=== PATIENT | female | born 1940 | race Caucasian/White ===

== ENCOUNTER → 2020-11-22 | Outpatient (CLI) | payer MEDICARE ==
[2020-11-22 18:19] LABS: HGB 12.3 g/dL (12.0-15.0); MCH 29.8 pg (27.0-32.0); MCHC 31.5 g/dL (32.0-37.0); MCV 94.4 fL (80.0-97.0); Mean Platelet Volume 10.5 fL (9.5-12.2); Platelet Count 224 X 10*3/uL (140-440); RBC 4.13 X 10*6/uL (4.10-5.20); RDW 15.1 % (11.5-14.5); WBC 21.74 X 10*3/uL (4.50-10.00)
[2020-11-22 21:16] LABS: African American GFR (CKD) 101.2 (60.0-200.0); Albumin 4.6 g/dL (3.80-4.90); Anion Gap 7.5 mmol/L (4.00-12.00); BUN/Creat Ratio 41.67 Ratio (12.00-20.00); Calcium 10.1 mg/dL (8.7-10.3); Carbon Dioxide 25.5 mmol/L (21.6-31.8); Chol/HDL Ratio 3.91; Globulin 2.3 g/dL (1.6-3.3); LDL Cholesterol,Calculated 56.8 mg/dL (0.0-131.0); Magnesium 2.2 mg/dL (1.5-2.4); Non-African American GFR(CKD) 87.3 (60.0-200.0); Potassium 4.5 mmol/L (3.5-5.5); Total Bilirubin 1.3 mg/dL (0.2-1.2); Total Protein 6.9 g/dL (6.2-8.2); VLDL Calculation 74.2 mg/dL (5.00-40.00)
== END | disposition home or self-care (01) ==
LOC: LABWHC1 11:07
PROVIDERS: ATTEND Nurse Practitioner Adult Health
DX: E78.5 Hyperlipidemia, unspecified (principal); I25.10 Atherosclerotic heart disease of native coronary artery without angina pectoris; I47.1 Supraventricular tachycardia
CPT/HCPCS: 36415; 80053; 80061; 83735; 84443; 84481; 85027

== ENCOUNTER → 2024-09-27 | Outpatient (CLI) | payer MEDICARE ==
[2024-09-27 15:11] LABS: INR 0.9 (<1.2); Partial Thromboplastin Time 23.3 sec (22.0-30.0); Prothrombin Time 10.5 sec (10.0-12.5)
[2024-09-27 18:09] LABS: HCT 39.5 % (37.2-46.3); HGB 12.4 g/dL (12.0-15.0); MCH 29.4 pg (27.0-32.0); MCHC 31.4 g/dL (32.0-37.0); MCV 93.6 FL (80.0-97.0); Mean Platelet Volume 10.7 FL (9.5-12.2); NRBC Per 100 WBC 0 X 10*3/uL (0.00-0.01); Platelet Count 235 X 10*3/uL (140-440); RBC 4.22 X 10*6/uL (4.10-5.20); RDW 14.3 % (11.5-14.5); WBC 15.27 X 10*3/uL (4.50-10.00)
[2024-09-27 18:21] LABS: ALT 9 U/L (8-44); AST 15 U/L (13-35); Albumin 4.1 g/dL (3.8-4.9); Albumin/Globulin Ratio 2.16 Ratio (1.60-3.17); Alkaline Phosphatase 83 U/L (41-126); Blood Urea Nitrogen 20.4 mg/dL (9.0-27.0); Calcium 9.1 mg/dL (8.7-10.3); Carbon Dioxide 24.5 mmol/L (21.6-31.8); Chloride 107 mmol/L (96-109); Globulin 1.9 g/dL (1.6-3.3); Glucose 102 mg/dL (70-110); Potassium 4.3 mmol/L (3.5-5.5); Sodium 144 mmol/L (135-145); Total Bilirubin 0.4 mg/dL (0.3-1.2)
== END | disposition home or self-care (01) ==
LOC: LABWHC1 13:48
PROVIDERS: ATTEND Orthopaedic Surgery Sports Medicine
DX: Z01.812 Encounter for preprocedural laboratory examination (principal); M17.12 Unilateral primary osteoarthritis, left knee; Z22.322 Carrier or suspected carrier of Methicillin resistant Staphylococcus aureus
CPT/HCPCS: 36415; 80053; 85027; 85610; 85730; 87070

== ENCOUNTER 2024-10-19 05:48 | Inpatient (IN) | payer MEDICARE ==
[~2024-10-19 05:48] MED LIST: ACETAMINOPHEN TAB 500 MG TAB PO PRN; ONDANSETRON 4 MG/2 ML VIAL IVP PRN; TRANEXAMIC 1,000 MG/100ML-NACL 1,000 MG in SALINE 1 100ML.BAG IVPB PRN
[2024-10-19] MEDS ORDERED: LIDOCAINE 1% (10MG/ML) FOR IV START INTRADERMA PRN (06:12)
[2024-10-19] MEDS: LACTATED RINGERS 1,000 ML IV SCH ×2 (06:50→12:03)
[2024-10-19] MEDS: IV FLUID CONTINUATION 1,000 ML IV ONE ×2 (06:50→07:29)
[2024-10-19] MEDS: GABAPENTIN 300 MG CAP PO PRN (06:53)
[2024-10-19] MEDS: MELOXICAM 7.5 MG TAB PO PRN (06:53)
[2024-10-19] MEDS: ONDANSETRON 4 MG/2 ML VIAL IVP ONE (06:55)
[2024-10-19] MEDS: DEXAMETHASONE SOD PHOSPHATE 4 MG/ML 1 ML VIAL IVP STA (06:56)
[2024-10-19] MEDS ORDERED: HYDROmorphone 0.5 MG/0.5 ML SYRINGE IVP PRN ×4 (07:00→07:23)
[2024-10-19] MEDS ORDERED: NALOXONE 0.4 MG/ML 1 ML VIAL IV PRN (07:23)
[2024-10-19] MEDS ORDERED: traMADol 50 MG TAB PO PRN (07:23)
[2024-10-19] MEDS ORDERED: NA PHOS,M-B/NA PHOS,DI-BA 133 ML ENEMA RECTAL PRN (07:23)
[2024-10-19] MEDS ORDERED: HYDROcodone/APAP 5-325MG 1 EACH TAB PO PRN (07:23)
[2024-10-19] MEDS: MIDAZOLAM 2 MG/2 ML VIAL IV ONE (07:24)
[2024-10-19] MEDS: fentaNYL (PF) 50 MCG/ML 2 ML AMP IVP PRN (07:25)
[2024-10-19] MEDS: ceFAZolin 1,000 MG in SODIUM CHLORIDE 0.9% 1,000 ML IRRIGATION ONE (07:30)
[2024-10-19] MEDS: ceFAZolin 2 GM in DEXTROSE 5% IN WATER 50 ML IVPB PRN (07:30)
[2024-10-19] MEDS ORDERED: TRANEXAMIC 1,000 MG/100ML-NACL PREMIX BAG ONE (07:59)
[2024-10-19] MEDS ORDERED: GLYCOPYRROLATE 0.2 MG/ML 2 ML VIAL ONE (07:59)
[2024-10-19] MEDS ORDERED: NEOSTIGMINE 1 MG/ML 10 ML VIAL ONE (07:59)
[2024-10-19] MEDS ORDERED: SUCCINYLCHOLINE CHLORIDE 200 MG/10 ML VIAL IV ONE (07:59)
[2024-10-19] MEDS ORDERED: fentaNYL (PF) 50 MCG/ML 2 ML AMP ONE (07:59)
[2024-10-19] MEDS ORDERED: ROPIVACAINE 5 MG/ML 30 ML VIAL ONE (07:59)
[2024-10-19] MEDS ORDERED: ROCURONIUM 10 MG/ML (5 ML VIAL) IV ONE (07:59)
[2024-10-19] MEDS ORDERED: SODIUM CHLORIDE 0.9% (PF) 10 ML VIAL ONE (07:59)
[2024-10-19] MEDS ORDERED: HYDROmorphone (PF) 1 MG/ML ONE (07:59)
[2024-10-19] MEDS ORDERED: PHENYLEPHRINE-0.9% NACL SYG 1,000 MCG/10 ML SYRINGE ONE (07:59)
[2024-10-19] MEDS ORDERED: LIDOCAINE 1% INJ 10MG/ML (20 ML MDV) ONE (07:59)
[2024-10-19] MEDS ORDERED: PROPOFOL 10 MG/ML 20 ML VIAL IV ONE (07:59)
[2024-10-19] MEDS ORDERED: DEXAMETHASONE SOD PHOSPHATE 4 MG/ML 1 ML VIAL ONE (07:59)
[2024-10-19] MEDS: LACTATED RINGERS 1,000 ML IV ONE (09:18)
--- NOTE | 2024-10-19 09:37 | P.ANPRN ---
Procedure Note - Anesthesia - Nerve Block Performed Left Adductor Canal Infusion Time Out Performed: Yes (0703) Date of Procedure: 10/19/24 Procedure Start Time: 07:04 Procedure Stop Time: 07:11 Location of Patient: PreOp Indication: Acute Post-Operative Pain, Requested by Surgeon Specifically requested for management of pain by DrKena: Ameya Jenkins Sedation Type: Sedate with meaningful contact maintained Preparation: Sterile Prep, Sterile Dressing Position: Supine Catheter: None Needle Types: Pajunk Needle Gauge: 18 Ultrasound used to visualize needle placement: Yes Ultrasound used to observe medication spread: Yes Injectate: 0.5% Ropivacaine (see comment for volume) (15cc+10cc nacl pf+decadron 4mg) Blood Aspirated: No Pain Paresthesia on Injection Noted: No Resistance on Injection: Normal Image Stored and Saved: Yes Events: Uneventful and Well Tolerated
--- NOTE | 2024-10-19 09:37 | P.ANPRN ---
Procedure Note - Anesthesia - Nerve Block Performed Left iPack Single Time Out Performed: Yes (0703) Date of Procedure: 10/19/24 Procedure Start Time: 07:12 Procedure Stop Time: 07:16 Location of Patient: PreOp Indication: Acute Post-Operative Pain, Requested by Surgeon Specifically requested for management of pain by DrKena: Ameya Jenkins Sedation Type: Sedate with meaningful contact maintained Preparation: Sterile Prep Position: Supine Catheter: None Needle Types: Pajunk Needle Gauge: 21 Ultrasound used to visualize needle placement: Yes Ultrasound used to observe medication spread: Yes Injectate: 0.5% Ropivacaine (see comment for volume) (15cc+10cc nacl pf+decadron 4mg) Blood Aspirated: No Pain Paresthesia on Injection Noted: No Resistance on Injection: Normal Image Stored and Saved: Yes Events: Uneventful and Well Tolerated
[2024-10-19] MEDS: ROPIVACAINE 1,100 MG, SODIUM CHLORIDE 0.9% 500 ML 330 ML, EMPTY PAIN BALL 1 EACH MISCELLANE PRN (10:18)
[2024-10-19] MEDS: hydrALAZINE HCL 20 MG/ML 1 ML VIAL IVP STA (10:39)
--- NOTE | 2024-10-19 10:58 | XR ---
EXAMINATION TYPE: XR knee limited LT DATE OF EXAM: 10/19/2024 10:52 AM INDICATION: Patient age:Female; 84 years old; Reason for study: Evaluation for Postop abnormality and alignment; PHH. pain COMPARISON: None. TECHNIQUE: The Left knee(s) was examined in frontal and lateral projections. FINDINGS: Status post total knee arthroplasty changes with hardware in appropriate alignment and in tact. No evidence of fracture. Subcutaneous lucencies and lucencies within the joint consistent with surgical changes. Vascular sclerosis. IMPRESSION: Status post total knee arthroplasty changes with hardware intact and appropriate alignment. No fractu res identified. [facility], , 10/19/2024 10:56 AM
--- NOTE | 2024-10-19 11:12 | OP ---
OPERATIVE REPORT DATE OF SERVICE : 10/19/2024 STEMHOLE BORER AND TOPPER: Natan Sky. PREOPERATIVE DIAGNOSIS: Left knee osteoarthrosis. POSTOPERATIVE DIAGNOSIS: Left knee osteoarthrosis. OPERATION: Left total knee arthroplasty. ANESTHESIA: General endotracheal. ESTIMATED BLOOD LOSS: 100 mL. TOURNIQUET TIME: 51 minutes at 250 mmHg. COMPLICATIONS: None apparent. DRAINS: None. DISPOSITION: Postanesthesia care unit. INDICATIONS: Josie is a very pleasant 84-year-old female with longstanding left knee pain. History and physical examination are consistent with advanced left knee osteoarthrosis. She has been through significant operative management at this point. Further treatment options were discussed, and she decided to go forward with the left total knee arthroplasty. Risks and procedure were discussed with her in detail. These risks include, but are not limited to risk of infection, nerve damage, bleeding, pain, and a small risk of deep vein thrombosis, which could lead to fatal pulmonary embolism. There is also small risk of loosening of the implant which could require revision operation. The patient understands these risks. All of her questions with regard to the risks of procedure were answered to her satisfaction. Appropriate informed consent was obtained. DESCRIPTION OF THE PROCEDURE: The patient was identified in the preoperative holding area. Surgical site was marked by both the patient and myself. She was given 2 g of Ancef IV for prophylactic purposes. She was then transferred to the operative suite. She was placed supine on the operating room table. General anesthetic was then administered and dosed per the anesthesia department without apparent complication. Examination under anesthesia was then performed. The patient was 2 to 3 degrees shy of full extension. She had 100 degrees of flexion. Medial collateral ligament, lateral collateral ligament, and posterior cruciate ligaments were stable. Tourniquet was then placed high on the left upper thigh, well-padded in preparation for surgery. The patient's left lower extremity was then prepped and draped in usual sterile fashion. Standard surgical pause was then undertaken to ensure that we were operating the correct site and appropriate preoperative antibiotics had been given. All staff in the room were in agreement, and we proceeded. The outlines of the patella were marked with a surgical pen. A planned 12 cm vertical incision centered over the patella was marked with a surgical pen. Leg was then exsanguinated with an Esmarch dressing. The knee was then flexed, and the tourniquet was inflated to 250 mmHg. Total tourniquet time for the procedure was 51 minutes. Incision was then made with a 10-blade scalpel. Dissection was carried down sharply overlying fascia. Great care was taken to minimize the skin flaps. The knee was then exposed using a standard medial parapatellar approach. A soft small cuff of quadriceps tendon was then left for suturing. She was in a bit of valgus preoperatively. A minimal medial release was then made. The superficial medial collateral ligament was dissected off the bone as minimally as possible as to just allow for placement of a medial retractor. The medial meniscus was then excised as well. Lateral meniscus was also released anteriorly. The leg was then externally rotated. The patella was everted. The knee was flexed. Retractors were then placed to protect the collateral ligaments. I then proceeded to remove the infrapatellar fat pad. This was excised sharply tangentially with fibers of the patellar tendon. I then proceeded to remove the peripheral osteophytes. This was done with a rongeur. I then proceeded with the distal femoral resection. She did have near full extension. A planned 9 mm resection was then done. The femoral canal was then entered in the midline of the femur approximately 10 mm anterior to the origin of posterior cruciate ligament. The tanna was then advanced down the center of the femur and placed intramedullary. Based on the preoperative radiographs, the angle between the anatomic and mechanical axis of the femur was approximately 4 to 5 degrees. The valgus angle of the distal femoral cutting guide was then set at 4 degrees for the left knee. The distal femoral cutting guide was then advanced over the intramedullary tanna. This was seated firmly against the femur. Then, as mentioned, planned to take 9 mm off the distal femur. The cutting block was then secured onto the femur with pins. The jig was then removed. The distal femoral cut was made through the slot of the block. The pins were removed. The distal femoral cutting block was removed. The accuracy of the distal femoral cuts was checked with 2 flat bars. I then proceeded with femoral sizing. Posterior referencing sizing guide was held firmly against the resected distal surface of the femur. The posterior condyles were resting on the posterior plane of the guide. The sizing stylus was then placed onto the anterior femur. The size of this was measured as a size 8. I then assessed for femoral rotation. Plan was for 3 degrees of external rotation. Three degrees of external rotation was placed onto the jig. These holes were then marked. I then confirmed the rotation by 3 separate methods. This was done using epicondylar axis as well as Marion's line and posterior referencing. It was deemed that the external rotation was proper. I then went forward and placed in the femoral cutting block. This was placed over the previously placed pin holes. The Jeff wing was then placed on the anterior slots to ensure there would not notch the anterior femur with the anterior femoral cut. I then proceeded with the anterior femoral cut. This was flushed with the anterior cortex of the femur. Posterior cuts were then made and followed by the anterior chamfer cut, then the posterior chamfer cut. The cutting block was then removed. Throughout the resection, collateral ligaments were protected with retractors. I then placed a trial size 8 femur. It was slightly wide, but the narrow fit very nicely mediolateral and it fit flush with the distal end of the femur. The drill hole was then made. I then proceeded with the tibial cut apparent. I planned for cruciate-retaining knee. The guide was placed and set for varus, valgus, and for slope. Height was set for approximately 2 mm resection from the lateral tibial plateau which was the lower side. I was happy with the alignment and amount of resection. Cutting block was then pinned to the proximal tibia. The alignment tanna was removed. The proximal tibia was resected with a reciprocating saw. Again, this was done with retractors protecting the collateral ligaments as well as the posterior cruciate ligament. I then proceeded to evaluate the flexion and extension gaps. 10 mm block was then placed. The flexion and extension gaps were equal. I then proceeded to resect the posterior osteophytes. She had fairly minimal posterior osteophytes. This was done using a curved osteotome. This resected the posterior osteophytes, and posterior capsular stripping was done off the posterior aspect of the femur at this time. The osteophytes were then removed. I then proceeded with resection of the patella. The thickness of the patella was measured using the caliper. The thickness was 24 mm. The thickness of the anticipated patellar dome was then taken into account. The resection was then performed and confirmed to be equal in 4 quadrants using a caliper. Approximately 14 mm of bone remained after resection. A 32 x 8.5 mm standard patellar trial was then placed. The holes were drilled and the trial was then placed. I then proceeded with sizing tibial plate. Size D tibial plate fit very nicely. I then placed the trial femur, the tibial tray, and the patellar button. A 10 mm trial tibial insert was also placed. The components fit very nicely. She had full extension and flexion. The extension and flexion gaps were equal and stable to both varus and valgus stress. The patella tracked appropriately. The tibial tray rotation was then marked with a Bovie. This was externally rotated properly. I then proceeded with tibial preparation. I first drilled the femoral holes and removed the femoral component. The tibial tray was then set for proper external rotation as well as medial and lateral placement onto the tibia. It was then pinned into place. I then proceeded with punching the keel. I then decided to proceed with cementing of all our components. The knee was thoroughly irrigated with sterile saline solution via pulse lavage. The lateral genicular artery was identified and cauterized. All blood was removed from the bone of the tibia, femur, and patella with pulsed lavage. I then proceeded with cementing. Two packs of antibiotic bone cement were prepared on the back table by surgical first assistant. I then proceeded with cementing of the tibia first. The cement was impacted in the keel as well as deeply seated in the bone. A second coat of cement was then placed. The tibia was then impacted into place. Excess cement was removed with Otis's and jokers. I then proceeded with cementing of the femoral component. The femoral component was also cemented using standard technique. Excess cement was removed. A 10 mm trial insert was then placed into the knee. It was brought into full extension with a constant axial load placed until the cement had hardened. The patellar component was then cemented. This was held firmly with compressive device until the cement had dried. When the cement had dried, the knee was taken out of extension. All excess cement was removed from around the prosthesis. I then trialed the knee with a 10 mm insert. The flexion and extension gaps were appropriate. The knee was stable. It came into full extension. I decided to go forward with the 10 mm medial congruent cross-linked cruciate-retaining tibial insert. Polyethylene was then placed onto the tibial tray and locked into place. The knee was then reduced. The knee was again further irrigated with sterile saline solution with antibiotic added. The tourniquet was then deflated. Total tourniquet time for the procedure was 51 minutes at 250 mmHg. Final components were Samia Persona size 8 narrow cruciate-retaining femoral component, size D tibial tray, a 10 mm medial congruent cruciate-retaining polyethylene insert, and a 32 x 8.5 mm patella. I then proceeded with closure. Again, the knee was thoroughly irrigated. The quadriceps tendon and the medial retinaculum were reapproximated with #2 Ethibond suture. The extensor mechanism was then closed with a running #2 Quill suture. Subcutaneous tissues were closed with 2-0 Vicryl interrupted suture. The skin was closed with a running 3-0 Quill suture. Dermabond was applied to the incision. Sterile compressive dressings were applied. All sponge and needle counts deemed correct prior to closure. The patient tolerated the procedure without apparent complication. She was transferred to recovery room in stable condition. MMODL / IJN: [id number] /
[2024-10-19] MEDS: HYDROcodone/APAP 10-325MG 1 EACH TAB PO PRN (13:48)
[2024-10-19] MEDS: ceFAZolin 2 GM in DEXTROSE 5% IN WATER 50 ML IVPB SCH (16:09)
[2024-10-19] MEDS: SENNOSIDES-DOCUSATE SODIUM 1 EACH TAB PO SCH (20:24)
[2024-10-19] MEDS: ASPIRIN 81 MG PO SCH (20:24)
[2024-10-20] MEDS: MAGNESIUM HYDROXIDE 2,400 MG/30 ML CUP PO PRN (08:08)
[2024-10-20 08:17] LABS: HCT 30.6 % (37.2-46.3); HGB 9.7 g/dL (12.0-15.0); MCH 29.3 pg (27.0-32.0); MCHC 31.7 g/dL (32.0-37.0); MCV 92.4 FL (80.0-97.0); Mean Platelet Volume 10.6 FL (9.5-12.2); NRBC Per 100 WBC 0 X 10*3/uL (0.00-0.01); Platelet Count 185 X 10*3/uL (140-440); RBC 3.31 X 10*6/uL (4.10-5.20); RDW 14.8 % (11.5-14.5); WBC 20.81 X 10*3/uL (4.50-10.00)
[2024-10-20 10:06] LABS: Basophils # (M) 0.21 X 10*3/uL (0.00-0.10); Eosinophils # (M) 0 X 10*3/uL (0.04-0.35); Lymphocytes # (M) 2.91 X 10*3/uL (0.90-5.00); Monocytes # (M) 1.04 X 10*3/uL (0.20-1.00); Neutrophils # (M) 16.65 X 10*3/uL (1.80-7.70); Neutrophils % (M) 80 %
--- NOTE | 2024-10-20 11:16 | P.PN ---
Progress Note - Text 10/20/24 646am 84-year-old female status post total knee replacement. Patient has an On-Q pump for postop pain control with a solution running at 8 cc with a VAS of 5. Clean dry and intact. Plan to continue On-Q pump infusion
[2024-10-20] MEDS: MULTIVITAMINS, THERA 1 EACH TAB PO SCH (11:41)
--- NOTE | 2024-10-20 12:52 | P.PN ---
Subjective Progress Note Date: 10/20/24 Principal diagnosis: S/P left TKA Patient is seen at bedside this morning. He is postop day #1 from left total knee arthroplasty. She has pain at the surgical site as expected but denies any new complaints. She denies numbness, tingling or calf pain. Review of systems is negative for fever, chills, chest pain, shortness of breath or other Objective - Vital Signs Vital signs: Vital Signs Temp 98.8 F 10/20/24 06:55 Pulse 65 10/20/24 08:00 Resp 20 10/20/24 08:00 BP 123/58 10/20/24 06:55 Pulse Ox 94 L 10/20/24 06:55 FiO2 Intake & Output 10/19/24 10/20/24 10/20/24 18:59 06:59 18:59 Intake Total 2050 Output Total 100 Balance 1950 Weight 75.3 kg Intake: IV 2050 Output: Estimated Blood Loss 100 Other: Voiding Method Diaper Bedside Commode Toilet Incontinent Diaper Diaper Incontinent Incontinent # Voids 3 0 - Exam Inspection reveals a benign surgical wound. There is no active bleeding or drainage. Neurovascular status is intact throughout the lower extremity with motor and sensation fully intact. Calf is soft and nontender. 2+ dorsalis pedis pulse and less than 2 second cap refill is present. - Constitutional General appearance: Present: no acute distress - Labs CBC & Chem 7: 10/20/24 04:40 Labs: Abnormal Lab Results - Last 24 Hours (Table) 10/20/24 Range/Units 04:40 WBC 20.81 H (4.50-10.00) X 10*3/uL RBC 3.31 L (4.10-5.20) X 10*6/uL Hgb 9.7 L (12.0-15.0) g/dL Hct 30.6 L (37.2-46.3) % MCHC 31.7 L (32.0-37.0) g/dL RDW 14.8 H (11.5-14.5) % Neutrophils # (Manual) 16.65 H (1.80-7.70) X 10*3/uL Monocytes # (Manual) 1.04 H (0.20-1.00) X 10*3/uL Eosinophils # (Manual) 0 L (0.04-0.35) X 10*3/uL Basophils # (Manual) 0.21 H (0.00-0.10) X 10*3/uL Assessment and Plan (1) Status post total left knee replacement Narrative/Plan: She will continue with routine postop orthopedic protocol including pain management, wound care, PT, DVT prophylaxis and medical management. Will request social work and case management discuss with her rehab placement and discharge planning Current Visit: Yes Status: Acute Priority: Medium Code(s): Z96.652 - PRESENCE OF LEFT ARTIFICIAL KNEE JOINT SNOMED Code(s): 8527867883903 Time with Patient: Less than 30
[2024-10-20] MEDS: HYDROcodone/APAP 7.5-325MG 1 EACH TAB PO PRN ×2 (14:48→21:00)
[2024-10-20 20:03] LABS: Appearance,Urine Clear (Clear); Bilirubin,Urine Negative (Negative); Blood,Urine Negative (Negative); Color,Urine Colorless; Glucose,Urine (UA) Negative (Negative); Ketones,Urine Negative (Negative); Leukocyte Esterase,Urine Moderate (Negative); Mucus,Urine Rare /hpf; Nitrite,Urine Negative (Negative); PH, Urine 5.5 (5.0-8.0); Protein,Urine Negative (Negative); RBC,Urine 1 /hpf (0-5); Urobilinogen,Urine <2.0 mg/dL (<2.0); WBC,Urine 21 /hpf (0-5)
[2024-10-20] MEDS: IPRATROPIUM-ALBUTEROL 3 ML NEB INHALATION SCH (20:15)
--- NOTE | 2024-10-20 23:45 | CONS ---
CONSULTATION HISTORY OF PRESENT ILLNESS: A white female with history of COPD, wears oxygen at night, status post knee surgery. Medical management. Vital signs reviewed. She appears to be in no cough, congestion, or shortness of breath. She is in no pain. She is on epidural still from the surgery. Vital signs reviewed. Medications reviewed. REVIEW OF SYSTEMS: A 14-point review of systems otherwise negative. PHYSICAL EXAMINATION: MUSCULOSKELETAL: Her left knee is in a knee brace. Pulse is a little bit fast at 100- 110.. PSYCH: Fair mood and affect. CARDIOVASCULAR: S1 and S2. LUNGS: Clear. ASSESSMENT: Status post knee surgery, chronic obstructive pulmonary disease, and nocturnal hypoxemia. Check CBC. Prognosis is guarded. Continue current treatment. She is day 1 postop from knee replacement on 10/19/2024. MMODL / IJN: [id number] /
[2024-10-21] MEDS: ONDANSETRON 4 MG/2 ML VIAL IVP PRN (00:54)
--- NOTE | 2024-10-21 08:50 | P.PN ---
Subjective Progress Note Date: 10/21/24 S/P left TKA 10/20/2024 progress: Patient is seen at bedside this morning. He is postop day #1 from left total knee arthroplasty. She has pain at the surgical site as expected but denies any new complaints. She denies numbness, tingling or calf pain. Review of systems is negative for fever, chills, chest pain, shortness of breath or other 10/21/2024 progress: Patient seen at bedside this morning with family present. No acute events overnight per patient. She has pain at her surgical site as expected but denies any new complaints. She denies fever, chills, chest pain or shortness of breath. She denies any numbness, tingling or calf pain. Objective - Vital Signs Vital signs: Vital Signs Temp 98.9 F 10/21/24 07:31 Pulse 76 10/21/24 08:13 Resp 16 10/21/24 07:31 BP 162/71 10/21/24 07:31 Pulse Ox 92 L 10/21/24 07:31 FiO2 Intake & Output 10/20/24 10/21/24 10/21/24 18:59 06:59 18:59 Intake Total 240 Output Total 6 Balance 234 Intake: Oral 240 Output: Urine 6 Other: Voiding Method Toilet Toilet Diaper Diaper Incontinent Incontinent # Voids 3 1 1 - Exam Inspection reveals a benign surgical wound. There is no active bleeding or drainage. Neurovascular status is intact throughout the lower extremity with motor and sensation fully intact. Calf is soft and nontender. Negative Homans' sign. 2+ dorsalis pedis pulse and less than 2 second cap refill is present. - Labs CBC & Chem 7: 10/20/24 04:40 Labs: Abnormal Lab Results - Last 24 Hours (Table) 10/20/24 10/20/24 Range/Units 04:40 18:00 Neutrophils # (Manual) 16.65 H (1.80-7.70) X 10*3/uL Monocytes # (Manual) 1.04 H (0.20-1.00) X 10*3/uL Eosinophils # (Manual) 0 L (0.04-0.35) X 10*3/uL Basophils # (Manual) 0.21 H (0.00-0.10) X 10*3/uL Ur Leukocyte Esterase Moderate H (Negative) Urine WBC 21 H (0-5) /hpf Urine Mucus Rare H (None) /hpf Assessment and Plan Assessment: 10/19/2024 status post total left knee replacement Plan: She will continue with routine postop orthopedic protocol including pain management, wound care, PT, DVT prophylaxis and medical management. wafer production lead worker and case management for rehab placement and discharge planning. Dispo: Plan discharge to rehab Wednesday.
[2024-10-21 10:37] LABS: HCT 28.4 % (37.2-46.3); HGB 8.8 g/dL (12.0-15.0); MCH 29.2 pg (27.0-32.0); MCV 94.4 FL (80.0-97.0); Mean Platelet Volume 10.3 FL (9.5-12.2); NRBC Per 100 WBC 0 X 10*3/uL (0.00-0.01); Platelet Count 151 X 10*3/uL (140-440); RBC 3.01 X 10*6/uL (4.10-5.20); RDW 14.8 % (11.5-14.5); WBC 15.09 X 10*3/uL (4.50-10.00)
[2024-10-21 12:58] LABS: Basophils # (M) 0 X 10*3/uL (0.00-0.10); Eosinophils # (M) 0 X 10*3/uL (0.04-0.35); Lymphocytes # (M) 5.89 X 10*3/uL (0.90-5.00); Neutrophils % (M) 59 %; RBC Morphology Normal (Normal)
--- NOTE | 2024-10-21 13:30 | PN ---
PROGRESS NOTE SUBJECTIVE: Status post knee surgery. She has been having much more pain late since the epidural ran out. She has had white counts over 20,000. Repeat is pending today. UA looks like positive UTI. She has some chills some rigors, started on Rocephin yesterday. Check CBC today, which is pending. Urine culture will be sent off. She will try to go home with some oral antibiotics for UTI. Leukocytosis secondary to UTI, may be little bit of bronchitis. She has had hypoxemia last night. She wears oxygen at home. She has a history of COPD and nocturnal hypoxemia. Follow up as an outpatient in a week or two after her knee rehab is over. Prognosis guarded. MMODL / IJN: [id number] /
[2024-10-22] MEDS: METOPROLOL TARTRATE 50 MG TAB PO SCH (00:21)
--- NOTE | 2024-10-22 04:06 | PN ---
PROGRESS NOTE SUBJECTIVE: An 84-year-old white female, who has been having hypoxia, this evening. Cardiology has started her on beta chaparrita 50 b.i.d. She got breathing of oxygen at night. We will try to get that back on. Discussed with her, she probably has a UTI, maybe some bronchitis. Prognosis guarded. She has pulse variable 60s-180s. PROGNOSIS: Guarded. Please see further orders. Followup current treatments. Check CBC in the morning for white count. Improvement with Rocephin. Please see further orders. MMODL / IJN: [id number] /
--- NOTE | 2024-10-22 07:52 | P.PN ---
Subjective Progress Note Date: 10/22/24 S/P left TKA 10/20/2024 progress: Patient is seen at bedside this morning. He is postop day #1 from left total knee arthroplasty. She has pain at the surgical site as expected but denies any new complaints. She denies numbness, tingling or calf pain. Review of systems is negative for fever, chills, chest pain, shortness of breath or other 10/21/2024 progress: Patient seen at bedside this morning with family present. No acute events overnight per patient. She has pain at her surgical site as expected but denies any new complaints. She denies fever, chills, chest pain or shortness of breath. She denies any numbness, tingling or calf pain. 10/12/2024 progress: Patient seen at bedside this morning. No family was present. Overnight patient was complaining of her heart racing and EKG showed sinus tachycardia with first-degree AV block with premature supraventricular complexes and then per chart review A-fib, cardiology was notified and transferred to the cardiac floor. This morning the patient states that her heart is no longer racing. She states the beta-chaparrita has made her feel much better. She was eating breakfast at time of exam. She states her left knee pain is slightly better than yesterday. Objective - Vital Signs Vital signs: Vital Signs Temp 97.8 F 10/22/24 04:00 Pulse 59 L 10/22/24 04:00 Resp 18 10/21/24 20:37 BP 117/66 10/22/24 04:00 Pulse Ox 91 L 10/21/24 19:06 FiO2 Intake & Output 10/21/24 10/22/24 10/22/24 18:59 06:59 18:59 Other: Voiding Method Toilet Diaper Incontinent # Voids 1 2 - Exam Patient was examined at bedside. Patient is resting comfortably in bed. No apparent distress. They are awake, alert and able to answer questions. Inspection: The surgical dressing is intact, there is no drainage or strikethrough. The skin surrounding the dressing is free of erythema. There is mild swelling in the operative thigh. Palpation: The operative calf is soft to compression. No calf tenderness. Neurovascular: Operative femoral nerve function is intact. The patient is able to actively plantarflex and dorsiflex their operative ankle and toes. Operative extremity sensation is intact to light touch throughout. Their operative foot appears well perfused, palpable dorsalis pedis pulse, and capillary refill under 2 seconds. - Labs CBC & Chem 7: 10/21/24 04:53 Labs: Abnormal Lab Results - Last 24 Hours (Table) 10/21/24 Range/Units 04:53 WBC 15.09 H (4.50-10.00) X 10*3/uL RBC 3.01 L (4.10-5.20) X 10*6/uL Hgb 8.8 L (12.0-15.0) g/dL Hct 28.4 L (37.2-46.3) % MCHC 31.0 L (32.0-37.0) g/dL RDW 14.8 H (11.5-14.5) % Neutrophils # (Manual) 8.90 H (1.80-7.70) X 10*3/uL Lymphocytes # (Manual) 5.89 H (0.90-5.00) X 10*3/uL Eosinophils # (Manual) 0 L (0.04-0.35) X 10*3/uL Assessment and Plan Assessment: 10/19/2024 status post total left knee replacement Left knee pain Sinus tachycardia Plan: She will continue with routine postop orthopedic protocol including pain management, wound care, PT, DVT prophylaxis and medical management. family preservation worker and case management for rehab placement and discharge planning. Dispo: At time of discharge patient will be discharged to short acute rehab. Farhat goldsmith is currently treated medically.
[2024-10-22 07:59] LABS: HCT 29.1 % (37.2-46.3); HGB 9.3 g/dL (12.0-15.0); MCH 30.2 pg (27.0-32.0); MCV 94.5 fL (80.0-97.0); Mean Platelet Volume 9.8 fL (9.5-12.2); Platelet Count 153 10*3/uL (140-440); RBC 3.08 10*6/uL (4.10-5.20); RDW 14.7 % (11.5-14.5); WBC 15.08 10*3/uL (4.50-10.00)
[2024-10-22 08:14] LABS: ALT 11 U/L (4-34); AST 22 U/L (14-36); African American GFR (CKD) >90 (>60 ml/min/1.73 sqM); Albumin 3.1 g/dL (3.5-5.0); Albumin/Globulin Ratio 1.4; Alkaline Phosphatase 49 U/L (38-126); Anion Gap 4 mmol/L; Blood Urea Nitrogen 17 mg/dL (7-17); Calcium 8.9 mg/dL (8.4-10.2); Carbon Dioxide 28 mmol/L (22-30); Chloride 104 mmol/L (98-107); Globulin 2.2 g/dL; Glucose 101 mg/dL (74-99); Non-African American GFR(CKD) 83 (>60 ml/min/1.73 sqM); Sodium 136 mmol/L (137-145); Total Bilirubin 1.6 mg/dL (0.2-1.3); Total Protein 5.3 g/dL (6.3-8.2)
--- NOTE | 2024-10-22 09:44 | CT ---
EXAMINATION TYPE: CT chest wo con DATE OF EXAM: 10/22/2024 8:35 AM COMPARISON: 11/06/2014 CLINICAL INDICATION: Female, 84 years old with history of HYPOXIA; PHH, HYPOXIA TECHNIQUE: Multiple axial images were obtained through the chest. Sagittal and coronal reformats were created for review. MIP was performed on a separate workstation. Contrast used: mL of (None if empty) Oral contrast used: (None if empty) CT DLP: 424.3 mGycm, Automated exposure control for dose reduction was used. FINDINGS: LUNGS/ PLEURA: Atelectasis changes in the lung bases bilaterally. Intrafissural lymph node along the right minor fissure series 201 image 65. No focal consolidation, pneumothorax or pleural effusion. AIRWAY: Patent and unremarkable. HEART: Size within normal limits. Moderate coronary artery calcifications present. MEDIASTINUM: No gross evidence of adenopathy. VASCULATURE: No aortic aneurysm. MUSCULOSKELETAL: No acute osseous abnormalities. Bridging syndesmophytes throughout the spine. Findin gs correlate with diffuse hepatic skeletal fibrosis. SOFT TISSUES/LYMPH NODES: Unremarkable. LOWER NECK: No significant findings. UPPER ABDOMEN: Simple appearing right renal cysts and 27 mm no follow-up recommended. Cholecystectomy changes. The scattered colonic diverticula. IMPRESSION: 1. Atelectasis changes in the lung bases. No evidence for focal airspace consolidation to suggest in fection. No evidence for heart failure. 2. Diffuse idiopathic skeletal hyperostosis. [facility], , 10/22/2024 9:42 AM
[2024-10-22 11:54] LABS: Eosinophils # (M) 0.15 k/uL (0-0.7); Lymphocytes # (M) 5.73 k/uL (1.0-4.8); Monocytes # (M) 0.75 k/uL (0-1.0); Neutrophils # (M) 8.44 k/uL (1.3-7.7); Neutrophils % (M) 56 %; Nucleated Red Blood Cells 0 /100 WBC (0-0); Total Cells Counted 100
--- NOTE | 2024-10-22 17:15 | P.CRDCN ---
History of Present Illness Consult date: 10/22/24 History of present illness: HISTORY OF PRESENTING ILLNESS: Patient presented to the hospital for an outpatient left total knee arthroplasty. Thereafter she was admitted. Yesterday night patient reported having some palpitations and her EKG showed sinus tachycardia with. AV block with few PACs and PVCs. There was also some report that patient had atrial fibrillation at 10/21/2024 around 11:30 PM On review of telemetry it mostly appears to be sinus rhythm and sinus tachycardia with frequent PACs and PVCs with very short run of atrial tachycardia which lasted less than few minutes. Does not appear to be organized atrial fibrillation activity at this time. She denies any symptoms chest pain chest pressure shortness of breath at the time of elevation EKG shows normal sinus rhythm Labs shows hemoglobin 9 WBC 15 BUN 17, creatinine 0.6 potassium 4 BP 112/64, heart rate 67 REVIEW OF SYSTEMS: 14 point review of system is negative except what is mentioned above in HPI. PHYSICAL EXAMINATION: Neck: Brisk carotid upstroke, no jugular venous distention. Lungs: Clear to auscultation. Heart: Regular rate and rhythm, S1-S2, , no murmur or rub. Abdomen: Soft nontender, positive bowel sounds. Extremities: No edema, intact distal pulses. Mild swelling noticed in left leg which is the postsurgical leg Neuro: Alert, oritented, no focal deficits. Detailed neuro exam was not performed. ASSESSMENT: # Irregular heartbeat likely from PACs and PVCs # Sinus tachycardia # Short run of atrial tachycardia # Status post left knee arthroplasty PLAN: Obtain cardiology note from the office to see what all cardiac conditions as patient has Continue DVT prophylaxis Continue to monitor telemetry Consider discharging her on a 14-day extended Holter monitor to go home with Obtain TSH levels, NT-proBNP lipid A1c Vidal Blankenship MD, FACC, RPVI Thank you for allowing [facility] to participate in this patient's care. Feel free to reach out in case of any followup questions. Past Medical History Past Medical History: Cancer, Chest Pain / Angina, Hyperlipidemia, Hypertension, Myocardial Infarction ([place]), Osteoarthritis (OA), Pneumonia Additional Past Medical History / Comment(s): leukemia,NSTEMI 11-08-13. hx of HTN and Hyperlipidemia - pt states she no longer takes any meds. 2liters 02 at night ( pt denies COPD or Sleep apnea) 02 levels drop low at night per pt. hx chest pain. "leaky valve". CLL. Hx skin cancer to nose removed. Left knee pain. urinary leakage Last Myocardial Infarction Date:: History of Any Multi-Drug Resistant Organisms: None Reported Past Surgical History: Cholecystectomy, Heart Catheterization With Stent, Hysterectomy Additional Past Surgical History / Comment(s): ANGIOPLASTY.CATARACTS AYESHA. Past Anesthesia/Blood Transfusion Reactions: No Reported Reaction Date of Last Stent Placement:: Past Psychological History: No Psychological Hx Reported Smoking Status: Former smoker Past Alcohol Use History: Rare Additional Past Alcohol Use History / Comment(s): STARTED SMOKING AT AGE 14, SMOKED 1 PP WEEK, QUIT IN HER 40'S Past Drug Use History: None Reported - Past Family History Father Family Medical History: Myocardial Infarction ([place]) Mother Family Medical History: Cancer Additional Family Medical History / Comment(s): BREAST CANCER AT AGE 85 AND VALVE PROBLEMS IN HER 90'S Medications and Allergies Home Medications Medication Instructions Recorded Confirmed Type Nitroglycerin Sl Tabs [Nitrostat] 0.4 mg PO Q5M PRN 04/08/15 10/19/24 History Ascorbic Acid [Vitamin C] 1,000 mg PO DAILY 05/25/16 10/19/24 History Ibuprofen [Motrin] 200 - 400 mg PO Q6HR PRN 05/25/16 10/19/24 History Unk Tumeric 1 tab PO DAILY 10/11/24 10/19/24 History Aspirin [Adult Low Dose Aspirin EC] 81 mg PO Q48H 10/11/24 10/19/24 History Melatonin 10 mg PO HS PRN 10/11/24 10/19/24 History Unk Magnesium 1 tab PO HS 10/11/24 10/19/24 History Aspirin [Adult Low Dose Aspirin EC] 81 mg PO BID #60 tab 10/20/24 Rx Docusate [Colace] 100 mg PO BID #60 capsule 10/20/24 Rx HYDROcodone/APAP 7.5-325MG [[place] 1 - 2 each PO Q6HR PRN #32 tab 10/20/24 Rx 7.5-325] Ondansetron [Zofran] 4 mg PO Q8HR PRN #21 tab 10/20/24 Rx Allergies Allergy/AdvReac Type Severity Reaction Status Date / Time prochlorperazine edisylate Allergy Severe siezure Verified 10/19/24 06:24 [From Compazine] prochlorperazine maleate Allergy Severe siezure Verified 10/19/24 06:24 [From Compazine] Physical Exam Vitals: Vital Signs Temp Pulse Pulse Pulse Resp BP Pulse Ox 10/22/24 12:45 68 10/22/24 12:35 68 10/22/24 12:05 67 16 112/64 92 L 10/22/24 08:05 98.7 F 62 16 155/70 93 L 10/22/24 08:04 72 10/22/24 07:54 68 10/22/24 04:00 97.8 F 59 L 117/66 10/22/24 02:08 70 10/22/24 00:00 97.7 F 98 134/65 10/21/24 23:46 104 H 10/21/24 23:22 118 H 10/21/24 23:20 126 H 10/21/24 23:13 90 10/21/24 23:11 94 10/21/24 23:10 120 H 10/21/24 23:09 91 10/21/24 23:02 104 H 10/21/24 23:00 109 H 10/21/24 22:58 126 H 10/21/24 22:24 95 111/77 10/21/24 20:37 73 18 10/21/24 20:30 71 18 10/21/24 19:06 99.2 F 82 17 151/66 91 L Intake and Output 10/22/24 10/22/24 10/22/24 06:59 14:59 22:59 Intake Total 360 Balance 360 Intake: Oral 360 Other: Voiding Method Toilet Toilet Diaper Diaper Incontinent Incontinent # Voids 2 1 Results 10/22/24 07:44 10/22/24 07:44 Cardiac Enzymes 10/22/24 Range/Units 07:44 AST 22 (14-36) U/L CBC 10/22/24 Range/Units 07:44 WBC 15.08 H (4.50-10.00) 10*3/uL RBC 3.08 L (4.10-5.20) 10*6/uL Hgb 9.3 L (12.0-15.0) g/dL Hct 29.1 L (37.2-46.3) % Plt Count 153 (140-440) 10*3/uL Comprehensive Metabolic Panel 10/22/24 Range/Units 07:44 Sodium 136 L (137-145) mmol/L Potassium 4.0 (3.5-5.1) mmol/L Chloride 104 (98-107) mmol/L Carbon Dioxide 28 (22-30) mmol/L BUN 17 (7-17) mg/dL Creatinine 0.64 (0.52-1.04) mg/dL Glucose 101 H (74-99) mg/dL Calcium 8.9 (8.4-10.2) mg/dL AST 22 (14-36) U/L ALT 11 (4-34) U/L Alkaline Phosphatase 49 (38-126) U/L Total Protein 5.3 L (6.3-8.2) g/dL Albumin 3.1 L (3.5-5.0) g/dL Current Medications Generic Name Dose Route Start Last Admin Trade Name Freq PRN Reason Stop Dose Admin Acetaminophen 650 mg 10/19/24 07:23 Acetaminophen Tab 325 Mg Tab PO 11/18/24 07:22 Q4HR PRN Pain Scale 1 to 5 Hydrocodone Bitart/Acetaminophen 1 each 10/20/24 12:44 10/22/24 12:06 Hydrocodone/Apap 7.5-325mg 1 Each Tab PO 1 each Q4H PRN Administration Pain Scale 1 to 5 Hydrocodone Bitart/Acetaminophen 2 each 10/20/24 12:44 10/22/24 16:58 Hydrocodone/Apap 7.5-325mg 1 Each Tab PO 2 each Q6H PRN Administration Pain Scale 6 to 10 Albuterol/Ipratropium 3 ml 10/20/24 20:00 10/22/24 12:34 Ipratropium-Albuterol 3 Ml Neb INHALATION 3 ml RT-TID CIARRA Administration Aspirin 81 mg 10/19/24 21:00 10/22/24 08:09 Aspirin 81 Mg PO 11/18/24 20:59 81 mg BID CIARRA Administration Bisacodyl 10 mg 10/19/24 07:23 Bisacodyl 10 Mg Supp RECTAL 11/18/24 07:22 DAILY PRN Constipation Ropivacaine 1,100 mg/ Sodium 0 mg 10/19/24 10:05 10/19/24 10:18 Chloride 330 ml/ Bandage/ MISCELLANE 11/18/24 10:04 8 ml Support Products 1 each Q2H PRN Administration Breakthrough Pain Hydromorphone HCl 0.125 mg 10/19/24 07:23 Hydromorphone 0.5 Mg/0.5 Ml Syringe IVP 11/18/24 07:22 Q3HR PRN Pain Scale 1 to 3 Hydromorphone HCl 0.5 mg 10/19/24 07:23 Hydromorphone 0.5 Mg/0.5 Ml Syringe IVP 11/18/24 07:22 Q3HR PRN Pain Scale 7 to 10 Hydromorphone HCl 0.25 mg 10/19/24 07:23 Hydromorphone 0.5 Mg/0.5 Ml Syringe IVP 11/18/24 07:22 Q3HR PRN Pain Scale 4 to 6 Lactated Ringer's 1,000 mls @ 20 mls/hr 10/19/24 06:12 10/22/24 06:41 Lactated Ringers IV 11/18/24 06:11 Not Given .Q24H CIARRA Lactated Ringer's 1,000 mls @ 100 mls/hr 10/19/24 07:30 10/22/24 06:42 Lactated Ringers IV 11/18/24 07:29 Not Given .Q10H CIARRA Ceftriaxone Sodium 1 gm/ 50 mls @ 100 mls/hr 10/20/24 18:00 10/22/24 16:59 Sodium Chloride IVPB 100 mls/hr Q24H CIARRA Administration Protocol Lidocaine HCl 0.1 ml 10/19/24 06:12 Lidocaine 1% (10mg/Ml) For Iv Start INTRADERMA 11/18/24 06:11 PER PROTOCOL PRN IV Start Magnesium Hydroxide 2,400 mg 10/19/24 07:23 10/22/24 12:06 Magnesium Hydroxide 2,400 Mg/30 Ml Cup PO 11/18/24 07:22 2,400 mg DAILY PRN Administration Constipation Metoprolol Tartrate 50 mg 10/21/24 23:30 10/22/24 08:09 Metoprolol Tartrate 50 Mg Tab PO 50 mg BID CIARRA Administration Multivitamins 1 each 10/20/24 12:00 10/22/24 08:09 Multivitamins, Thera 1 Each Tab PO 11/19/24 11:59 1 each DAILY@1200 CIARRA Administration Naloxone HCl 0.2 mg 10/19/24 07:23 Naloxone 0.4 Mg/Ml 1 Ml Vial IV 11/18/24 07:22 Q2M PRN Opioid Reversal Ondansetron HCl 4 mg 10/19/24 07:23 10/21/24 00:54 Ondansetron 4 Mg/2 Ml Vial IVP 11/18/24 07:22 4 mg Q8HR PRN Administration Nausea And Vomiting Senna/Docusate Sodium 2 each 10/19/24 21:00 10/21/24 20:28 Sennosides-Docusate Sodium 1 Each Tab PO 11/18/24 20:59 2 each HS CIARRA Administration Sodium Biphosphate/Sodium Phosphate 133 ml 10/19/24 07:23 Na Phos,M-B/Na Phos,Di-Ba 133 Ml Enema RECTAL 11/18/24 07:22 DAILY PRN Constipation Tramadol HCl 50 mg 10/19/24 07:23 Tramadol 50 Mg Tab PO 11/18/24 07:22 Q6HR PRN Pain Scale 1 to 5 Intake and Output 10/22/24 10/22/24 10/22/24 06:59 14:59 22:59 Intake Total 360 Balance 360 Intake: Oral 360 Other: Voiding Method Toilet Toilet Diaper Diaper Incontinent Incontinent # Voids 2 1 10/22/24 07:44 10/22/24 07:44
[2024-10-22 17:44] LABS: NT-Pro-B-Type Natriuretic Pept 3860 pg/mL
--- NOTE | 2024-10-23 02:16 | PN ---
PROGRESS NOTE SUBJECTIVE: White count is down to 15,020. She had arrhythmias overnight. Pulse going from low to high, started on metoprolol. Currently, blood pressure 155/70, O2 is 93, temp 98.7, pulse 68. Currently, the patient is on breathing treatments for atelectasis and bronchitis, was on antibiotics. Urine culture is negative. Cardiology to see for arrhythmias. Prognosis is guarded. Possibly go home once Cardiology clears her. EKG shows tachycardia, first-degree AV block. Continue current treatment. Prognosis guarded. Hypertension was possible arrhythmia postop. She has a history of asthma/COPD with atelectasis. She has hypoxemia, wears oxygen at night. Continue on beta chaparrita. Possibly go to rehab tomorrow. She was given a script for antibiotics for bronchitis for week whenever she goes, if Cardiology clears her. Prognosis is guarded. MMODL / FRANCISN: [id number] /
[2024-10-23 08:16] LABS: Chol/HDL Ratio 2.68 Ratio; LDL Cholesterol,Calculated 64.2 mg/dL (0.0-131.0)
--- NOTE | 2024-10-23 11:55 | P.PN ---
Subjective HISTORY OF PRESENT ILLNESS: Patient presented to the hospital for an outpatient left total knee arthroplasty. Thereafter she was admitted. Yesterday night patient reported having some palpitations and her EKG showed sinus tachycardia with. AV block with few PACs and PVCs. There was also some report that patient had atrial fibrillation at 10/21/2024 around 11:30 PM On review of telemetry it mostly appears to be sinus rhythm and sinus tachy cardia with frequent PACs and PVCs with very short run of atrial tachycardia which lasted less than few minutes. Does not appear to be organized atrial fibrillation activity at this time. She denies any symptoms chest pain chest pressure shortness of breath at the time of elevation 10/23/2024 Patient examined this morning at the bedside. Patient currently denies any chest pain or pressure. She denies shortness of breath. Denies any palpitations. She does report a cough with sputum production this morning. Telemetry Veals sinus mechanism with a heart rate in the 60s. PHYSICAL EXAM: VITAL SIGNS: Reviewed. GENERAL: Well-developed in no acute distress. NECK: Supple. No JVD or thyromegaly LUNGS: Respirations even and unlabored. Lungs essentially clear to auscultation bilaterally. HEART: Regular rate and rhythm. S1 and S2 heard. Systolic murmur noted. EXTREMITIES: Normal range of motion. No clubbing or cyanosis. Peripheral pulses intact. No lower extremity edema ASSESSMENT: Sinus tachycardia with PACs and PVCs, no evidence of atrial fibrillation Short run of atrial tachycardia Status post left total knee arthroplasty History of CAD with previous stenting Mild aortic stenosis PLAN: Will plan to update echocardiogram on an outpatient basis No evidence of atrial fibrillation thus far on telemetry Patient is stable for discharge home today from a cardiac standpoint Patient does not need to be discharged home with the event monitor Patient to follow-up postdischarge in the office with Dr. Nelson Nurse practitioner note has been reviewed by physician. Signing provider agrees with the documented findings, assessment, and plan of care documented by SUBSTATION MANAGER as a scribe. Objective - Vital Signs Vital signs: Vital Signs Temp 98.3 F 10/23/24 08:00 Pulse 60 10/23/24 10:08 Resp 19 10/23/24 08:00 BP 145/67 10/23/24 08:00 Pulse Ox 99 10/23/24 08:00 FiO2 Intake & Output 05/05/0810/23/24 10/23/24 18:59 06:59 18:59 Intake Total 1360 120 240 Balance 1360 120 240 Weight 75.2 kg Intake: Oral 1360 120 240 Other: Voiding Method Toilet Toilet Toilet Diaper Diaper Diaper Incontinent Incontinent Incontinent # Voids 2 3 - Labs CBC & Chem 7: 10/22/24 07:44 10/22/24 07:44 Labs: Abnormal Lab Results - Last 24 Hours (Table) 10/22/24 Range/Units 07:44 Neutrophils # (Manual) 8.44 H (1.3-7.7) k/uL Lymphocytes # (Manual) 5.73 H (1.0-4.8) k/uL Microbiology - Last 24 Hours (Table) 10/20/24 18:00 Urine Culture - Final Urine,Voided
[2024-10-23] MEDS: bisacodyL 10 MG SUPP RECTAL PRN (13:30)
--- NOTE | 2024-10-23 15:18 | P.PN ---
Subjective Progress Note Date: 10/23/24 Principal diagnosis: S/P left TKA Patient is seen at bedside this morning. She is postop day #4 from left total knee arthroplasty. She has pain at the surgical site as expected but denies any new complaints. She has stabilized in regards to her heart. She denies numbness, tingling or calf pain. Review of systems is negative for fever, chills, chest pain, shortness of breath or other Objective - Vital Signs Vital signs: Vital Signs Temp 98.3 F 10/23/24 08:00 Pulse 63 10/23/24 12:00 Resp 16 10/23/24 12:00 BP 124/62 10/23/24 12:00 Pulse Ox 97 10/23/24 12:00 FiO2 Intake & Output 10/22/24 10/23/24 10/23/24 18:59 06:59 18:59 Intake Total 1360 120 780 Balance 1360 120 780 Weight 75.2 kg Intake: Oral 1360 120 780 Other: Voiding Method Toilet Toilet Toilet Diaper Diaper Diaper Incontinent Incontinent Incontinent # Voids 2 3 2 - Exam Inspection reveals a benign surgical wound. There is no active bleeding or drainage. Neurovascular status is intact throughout the lower extremity with motor and sensation fully intact. Calf is soft and nontender. 2+ dorsalis pedis pulse and less than 2 second cap refill is present. - Constitutional General appearance: Present: no acute distress - Labs CBC & Chem 7: 10/22/24 07:44 10/22/24 07:44 Assessment and Plan (1) Status post total left knee replacement Narrative/Plan: She will continue with routine postop orthopedic protocol including pain management, wound care, PT, DVT prophylaxis and medical management. She is pending authorization for ECF placement and may transfer when okay with IM and cardiology Current Visit: No Status: Acute Priority: Medium Code(s): Z96.652 - PRESENCE OF LEFT ARTIFICIAL KNEE JOINT SNOMED Code(s): 1211994145956 Time with Patient: Less than 30
--- NOTE | 2024-10-23 15:38 | P.CONS ---
History of Present Illness - Reason for Consult Consult date: 10/23/24 rehab recommendations - Chief Complaint debility - History of Present Illness Ms Bruce is an 84 y/o right handed single female who lives alone in a home with ramp entry. 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 She does have a cane, oxygen at night, and a walker. She drives. She plans to stay with her sister or daughter upon discharge. Patient presented to [facility] for a scheduled, elective left total knee arthroplasty on 10/19/24. Patient with no known interoperative issues. She was found to have some irregular heartbeat. Cardiology was consulted. [place] that she had sinus tachycardia with frequent PACs and PVCs. cardiology recommended 14 day Holter monitor. PM&R consulted for rehab recommendations. Patient was seen by therapies, min assist for bathing, dressing, toileting, transfers, gait for 10 feet using two wheel walker. 10/23: Patient states she is doing ok, struggling to have a BM, last one was Wednesday, just had suppository. She denies issues with urination, does have nocturia which makes her nervous for going home with current injury. She denies CP, SOB, and abdominal pain. She has intermittent cough. She is now being treated for UTI. Cardiology order echo. She is hoping to come to [facility]. Review of Systems reviewed, as above in HPI Past Medical History Past Medical History: Cancer, Chest Pain / Angina, Hyperlipidemia, Hypertension, Myocardial Infarction ([place]), Osteoarthritis ([place]), Pneumonia Additional Past Medical History / Comment(s): leukemia,NSTEMI 11-08-13. hx of HTN and Hyperlipidemia - pt states she no longer takes any meds. 2liters 02 at night ( pt denies COPD or Sleep apnea) 02 levels drop low at night per pt. hx chest pain. "leaky valve". CLL. Hx skin cancer to nose removed. Left knee pain. urinary leakage Last Myocardial Infarction Date:: History of Any Multi-Drug Resistant Organisms: None Reported Past Surgical History: Cholecystectomy, Heart Catheterization With Stent, Hysterectomy Additional Past Surgical History / Comment(s): ANGIOPLASTY.CATARACTS AYESHA. Past Anesthesia/Blood Transfusion Reactions: No Reported Reaction Date of Last Stent Placement:: Past Psychological History: No Psychological Hx Reported Smoking Status: Former smoker Past Alcohol Use History: Rare Additional Past Alcohol Use History / Comment(s): STARTED SMOKING AT AGE 14, SMOKED 1 PP WEEK, QUIT IN HER 40'S Past Drug Use History: None Reported - Past Family History Father Family Medical History: Myocardial Infarction ([place]) Mother Family Medical History: Cancer Additional Family Medical History / Comment(s): BREAST CANCER AT AGE 85 AND VALVE PROBLEMS IN HER 90'S Medications and Allergies Home Medications Medication Instructions Recorded Confirmed Type Nitroglycerin Sl Tabs [Nitrostat] 0.4 mg PO Q5M PRN 04/08/15 10/19/24 History Ascorbic Acid [Vitamin C] 1,000 mg PO DAILY 05/25/16 10/19/24 History Ibuprofen [Motrin] 200 - 400 mg PO Q6HR PRN 05/25/16 10/19/24 History Unk Tumeric 1 tab PO DAILY 10/11/24 10/19/24 History Aspirin [Adult Low Dose Aspirin EC] 81 mg PO Q48H 10/11/24 10/19/24 History Melatonin 10 mg PO HS PRN 10/11/24 10/19/24 History Unk Magnesium 1 tab PO HS 10/11/24 10/19/24 History Aspirin [Adult Low Dose Aspirin EC] 81 mg PO BID #60 tab 10/20/24 Rx Docusate [Colace] 100 mg PO BID #60 capsule 10/20/24 Rx HYDROcodone/APAP 7.5-325MG [[place] 1 - 2 each PO Q6HR PRN #32 tab 10/20/24 Rx 7.5-325] Ondansetron [Zofran] 4 mg PO Q8HR PRN #21 tab 10/20/24 Rx Allergies Allergy/AdvReac Type Severity Reaction Status Date / Time prochlorperazine edisylate Allergy Severe siezure Verified 10/19/24 06:24 [From Compazine] prochlorperazine maleate Allergy Severe siezure Verified 10/19/24 06:24 [From Compazine] Physical Exam Vitals: Vital Signs Temp Pulse Pulse Pulse Resp BP Pulse Ox 10/23/24 12:00 63 16 124/62 97 10/23/24 10:08 60 10/23/24 09:57 60 10/23/24 08:00 98.3 F 66 19 145/67 99 10/23/24 04:00 98.2 F 66 18 157/64 97 10/23/24 00:00 98.1 F 78 78 18 144/71 97 10/22/24 20:00 98.1 F 78 18 131/74 97 10/22/24 19:47 66 10/22/24 19:35 78 10/22/24 16:00 69 18 133/58 96 Intake and Output 10/23/24 10/23/24 10/23/24 06:59 14:59 22:59 Intake Total 780 Balance 780 Intake: Oral 780 Other: Voiding Method Toilet Toilet Diaper Diaper Incontinent Incontinent # Voids 3 2 Weight 75.2 kg General: WDWN elderly female, laying in bed, alert, NAD HEENT: head normocephalic, atraumatic; moist mucous membranes, external ears intact with hearing intact to conversational speech, glasses on CV: hospital monitor on Lungs: Even non labored respirations on RA, intermittent cough Abdomen: soft, NT, ND MSK: full ROM bilateral UE and RLE, LLE limited- pain and weakness MMT: B/L SABD/EE/EF/HG/WE/FABD 5/5; R HF 4+/5, DF 5/5, L HF 3-/5, KE 3-/5, DF 5/5 Neuro: CN 2-12 grossly intact Sensation intact to light touch bilateral UE and LEs Psych: mood calm, affect appropriate, A&O x 4 Extremities: calves supple, non tender, + Left knee and leg edema Skin: intact where exposed except for left knee incision-dressed Results CBC & Chem 7: 10/22/24 07:44 10/22/24 07:44 Assessment and Plan Assessment: # impaired gait and ADL secondary to osteoarthritis status post left TKA - weight-bearing is tolerated # sinus tachycardia # irregular heart rhythm - 14 day Holter monitor recommended per cardiology -echo pending #UTI -abx per AUG #History of Leukemia #Comorbidities: HTN, HLD, OA, history of [place] #Pain Management -Tylenol 650 mg Q 4 hrs prn, [place] 7.5/325 mg Q 4 prn mild-moderate pain, 2 tabs for Q 6 hrs prn for severe pain, Dilaudid prn- not using #DVT Proph -ASA 81 mg BID #Your medical dx and management Dispo: Patient is noted to be below baseline function, would benefit from a structured Inpatient rehabilitation stay with 3 hrs of therapy a day, 6-7 days a week with Physical Therapy, Occupational Therapy and Speech Therapy (if indicated). Patient has medical complexity requiring nursing services, close physician medical management, and interdisciplinary team approach for rehab. Patient is motivated and has good social support. Patient WILL need insurance authorization. Patient is aware that she needs insurance approval. Patient seen and examined in collaboration with Dr Norman. Thank you for consulting our services.
--- NOTE | 2024-10-23 17:07 | CA ---
Transthoracic Echo Report Name: Josie Bruce Age: 84 Gender: F : 1940 Exam Date: 10/23/2024 14:03 Exam Location: [facility] [facility] Ht (in): 65 Wt (lb): 166 Ordering Physician: Waldo Campos MD Attending/Referring Phys: Cylinder Devalver Zulma Villaseñor RDCS Procedure CPT: Indications: cardiac murmur/arrythmia Cardiac Hx: Technical Quality: Fair Contrast 1: Total Dose (mL): Contrast 2: Total Dose (mL): MEASUREMENTS (Male / Female) Normal Values 2D ECHO LV Diastolic Diameter PLAX 4.1 cm 4.2 - 5.9 / 3.9 - 5.3 cm LV Systolic Diameter PLAX 2.4 cm IVS Diastolic Thickness 0.7 cm 0.6 - 1.0 / 0.6 - 0.9 cm LVPW Diastolic Thickness 0.6 cm 0.6 - 1.0 / 0.6 - 0.9 cm LV Relative Wall Thickness 0.3 RV Internal Dim ED PLAX 1.2 cm LVOT Diameter 1.7 cm LA Systolic Diameter LX 3.8 cm 3.0 - 4.0 / 2.7 - 3.8 cm LV Diastolic Volume MOD BP 63.3 cm??? 67 - 155 / 56 - 104 cm??? LV Systolic Volume MOD BP 28.7 cm??? 22 - 58 / 19 - 49 cm??? LV Ejection Fraction MOD BP 54.6 % >= 55 % LV Cardiac Index MOD BP 1232.6 cm???/min???m??? LV Diastolic Volume MOD 4C 69.1 cm??? LV Systolic Volume MOD 4C 31.4 cm??? LV Ejection Fraction MOD 4C 54.7 % LV Cardiac Index MOD 4C 1348.8 cm???/min???m??? LV Diastolic Length 4C 8.0 cm LV Systolic Length 4C 6.7 cm LV Diastolic Volume MOD 2C 53.4 cm??? LV Systolic Volume MOD 2C 26.4 cm??? LV Ejection Fraction MOD 2C 50.7 % LV Cardiac Index MOD 2C 966.7 cm???/min???m??? LV Diastolic Length 2C 7.3 cm LV Systolic Length 2C 6.6 cm LA Volume 57.5 cm??? 18 - 58 / 22 - 52 cm??? LA Volume Index 30.6 cm???/m??? 16 - 28 cm???/m??? DOPPLER AV Peak Velocity 274.0 cm/s AV Peak Gradient 30.0 mmHg AV Mean Velocity 206.2 cm/s AV Mean Gradient 18.6 mmHg AV Velocity Time Integral 72.3 cm LVOT Peak Velocity 129.4 cm/s LVOT Peak Gradient 6.7 mmHg LVOT Velocity Time Integral 34.8 cm LVOT Stroke Volume 80.2 cm??? LVOT Stroke Volume Index 43.9 ml/m??? LVOT Cardiac Index 2863.5 cm???/min???m??? AV Area Cont Eq vti 1.1 cm??? AV Area Cont Eq pk 1.1 cm??? MV Area PHT 2.1 cm??? Mitral E Point Velocity 96.6 cm/s Mitral A Point Velocity 123.5 cm/s Mitral E to A Ratio 0.8 MV Deceleration Time 366.9 ms TR Peak Velocity 259.3 cm/s TR Peak Gradient 26.9 mmHg FINDINGS Left Ventricle Left ventricular ejection fraction is estimated at 55-60%. Normal Left ventricular size, wall thickness, systolic function with no obvious regional wall motion abnormalities. Right Ventricle Normal right ventricular size and function. Right ventricular systolic pressure within normal limits. Right Atrium Mild right atrial dilatation. Left Atrium Mildly increased left atrial volume. Mitral Valve Structurally normal mitral valve. Trace mitral regurgitation. No mitral stenosis. Aortic Valve Trileaflet aortic valve.[id number] aortic stenosis with a peak gradient of 30mmHg and a mean gradient of 19mmHg. Trace aortic regurgitation. Tricuspid Valve Structurally normal tricuspid valve. Trace to mild tricuspid regurgitation. No tricuspid prolapse. No tricuspid stenosis. Pulmonic Valve Structurally normal pulmonic valve. Trace pulmonic regurgitation. No pulmonic stenosis. Pericardium No pericardial or pleural effusion. Aorta Normal size aortic root and proximal ascending aorta. CONCLUSIONS Normal LV size and systolic function. Mild to moderate aortic stenosis trace aortic regurgitation mild mitral and tricuspid regurgitation. No pericardial effusion. No pulmonary hypertension Previewed by: Dr. Ramy Solis MD (Electronically Signed) Final Date: 23 Oct 2024 17:06
[2024-10-24 07:22] LABS: Basophils # (A) 0.05 10*3/uL (0.00-0.10); Basophils % (A) 0.5 %; Eosinophils # (A) 0.44 10*3/uL (0.04-0.35); HCT 35.6 % (37.2-46.3); HGB 11.4 g/dL (12.0-15.0); Lymphocytes # (A) 5.62 10*3/uL (0.90-5.00); Lymphocytes % (A) 51.4 %; MCH 29.9 pg (27.0-32.0); MCV 93.4 fL (80.0-97.0); Mean Platelet Volume 9.9 fL (9.5-12.2); Monocytes % (A) 6.4 %; Neutrophils # (A) 4.07 10*3/uL (1.80-7.70); Neutrophils % (A) 37.2 %; Platelet Count 175 10*3/uL (140-440); RBC 3.81 10*6/uL (4.10-5.20); RDW 14.3 % (11.5-14.5); WBC 10.94 10*3/uL (4.50-10.00)
--- NOTE | 2024-10-24 12:47 | P.PN ---
Subjective HISTORY OF PRESENT ILLNESS: Patient presented to the hospital for an outpatient left total knee arthroplasty. Thereafter she was admitted. Yesterday night patient reported having some palpitations and her EKG showed sinus tachycardia with. AV block with few PACs and PVCs. There was also some report that patient had atrial fibrillation at 10/21/2024 around 11:30 PM On review of telemetry it mostly appears to be sinus rhythm and sinus tachy cardia with frequent PACs and PVCs with very short run of atrial tachycardia which lasted less than few minutes. Does not appear to be organized atrial fibrillation activity at this time. She denies any symptoms chest pain chest pressure shortness of breath at the time of elevation 10/23/2024 Patient examined this morning at the bedside. Patient currently denies any chest pain or pressure. She denies shortness of breath. Denies any palpitations. She does report a cough with sputum production this morning. Telemetry Veals sinus mechanism with a heart rate in the 60s. 10/24/2024 Patient examined this morning at the bedside. Patient currently denies chest pain or pressure. She denies shortness of breath. Telemetry reveals sinus mechanism. PHYSICAL EXAM: VITAL SIGNS: Reviewed. GENERAL: Well-developed in no acute distress. NECK: Supple. No JVD or thyromegaly LUNGS: Respirations even and unlabored. Lungs essentially clear to auscultation bilaterally. HEART: Regular rate and rhythm. S1 and S2 heard. Systolic murmur noted. EXTREMITIES: Normal range of motion. No clubbing or cyanosis. Peripheral pulses intact. No lower extremity edema ASSESSMENT: Sinus tachycardia with PACs and PVCs, no evidence of atrial fibrillation Short run of atrial tachycardia Status post left total knee arthroplasty History of CAD with previous stenting Mild aortic stenosis PLAN: Will plan to update echocardiogram on an outpatient basis No evidence of atrial fibrillation thus far on telemetry Patient is stable for discharge home today from a cardiac standpoint Patient does not need to be discharged home with the event monitor Patient to follow-up postdischarge in the office with Dr. Nelson We will sign off. Please reconsult if needed. Nurse practitioner note has been reviewed by physician. Signing provider agrees with the documented findings, assessment, and plan of care documented by NURSING PROGRAM CHAIR as a scribe. Objective - Vital Signs Vital signs: Vital Signs Temp 98.6 F 10/24/24 08:00 Pulse 61 10/24/24 11:47 Resp 16 10/24/24 11:47 BP 127/62 10/24/24 11:47 Pulse Ox 98 10/24/24 11:47 FiO2 Intake & Output 10/23/24 10/24/24 10/24/24 18:59 06:59 18:59 Intake Total 1800 240 Balance 1800 240 Intake: Oral 1800 240 Other: Voiding Method Toilet Toilet Toilet Diaper Diaper Incontinent Incontinent # Voids 1 3 # Bowel Movements 1 3 - Labs CBC & Chem 7: 10/24/24 05:48 10/22/24 07:44 Labs: Abnormal Lab Results - Last 24 Hours (Table) 10/24/24 Range/Units 05:48 WBC 10.94 H (4.50-10.00) 10*3/uL RBC 3.81 L (4.10-5.20) 10*6/uL Hgb 11.4 L (12.0-15.0) g/dL Hct 35.6 L (37.2-46.3) % Immature Gran # 0.06 H (0.00-0.04) 10*3/uL Lymphocytes # 5.62 H (0.90-5.00) 10*3/uL Eosinophils # 0.44 H (0.04-0.35) 10*3/uL
[2024-10-24] MEDS: ACETAMINOPHEN TAB 325 MG TAB PO PRN (15:11)
[2024-10-25 03:53] VITALS: TEMP 98.1
[2024-10-25 08:40] VITALS: BP 148/80; PULSE 68; RESP 18
--- NOTE | 2024-10-25 22:03 | PN ---
PROGRESS NOTE SUBJECTIVE: She wants to go home tomorrow. She can take her to the rehab over there. So, she would probably go home. She wants medicines reconciled and absolutely go home in the morning. OBJECTIVE: CARDIOVASCULAR: S1, S2. LUNGS: Clear. GI: Soft. HEMATOLOGY: Negative Homans. Prognosis guarded. Ambulate as tolerated. Status post knee surgery day 4. Dysrhythmia, hypertension, COPD. Please see further orders. Discharge in the morning. MMODL / IJN: [id number] /
--- NOTE | 2024-10-26 05:51 | PN ---
PROGRESS NOTE SUBJECTIVE: Wants to go home today. OBJECTIVE: VITAL SIGNS: Temp 98.1, blood pressure 148/80, and O2 of 95 on room air. CARDIOVASCULAR: S1, S2. HEMATOLOGY: Negative Homans. PSYCH: Fair mood and affect. Up ambulating. She will do physical therapy at home. Prognosis guarded. Ambulate as tolerated with rehab. Possibly go home tomorrow. Pending rehab placement. , she wants to go home. MMODL / IJN: [id number] /
== END 2024-10-25 13:25 | disposition home health service (06) | DRG 470 ==
LOC: OR 05:48 → 3SCARD 05:49 → 4SSUR 09:37 → 3SCARD 10-21 23:52 → 4SSUR 10-21 23:52 → 3SCARD 10-23 10:04
PROVIDERS: ADMIT Orthopaedic Surgery Sports Medicine; ATTEND Orthopaedic Surgery Sports Medicine
PROC: 0SRD0J9 Replacement of Left Knee Joint with Synthetic Substitute, Cemented, Open Approach (ICD-10-PCS; principal; 2024-10-19 07:30)
DX: M17.12 Unilateral primary osteoarthritis, left knee (principal); I47.19 Other supraventricular tachycardia; Z99.81 Dependence on supplemental oxygen; J44.89 Other specified chronic obstructive pulmonary disease; I10 Essential (primary) hypertension; N39.0 Urinary tract infection, site not specified; I48.91 Unspecified atrial fibrillation; E78.5 Hyperlipidemia, unspecified; I44.0 Atrioventricular block, first degree; R09.02 Hypoxemia; J40 Bronchitis, not specified as acute or chronic; I25.10 Atherosclerotic heart disease of native coronary artery without angina pectoris; Z60.2 Problems related to living alone; Z95.5 Presence of coronary angioplasty implant and graft; I25.2 Old myocardial infarction; Z79.82 Long term (current) use of aspirin; Z85.6 Personal history of leukemia; Z85.828 Personal history of other malignant neoplasm of skin; Z87.891 Personal history of nicotine dependence
CPT/HCPCS: 64448; 64474; 81001; 85025; 87086; 93306; 94640